=== PATIENT | female | born 1975 | race Caucasian/White ===

== ENCOUNTER 2022-04-21 10:04 | Day surgery (SDC) | payer OTHER ==
[2022-04-16 13:37] LABS: Absolute Lymphocytes (CBC) 1.6 K/uL (0.7-4.9); Hematocrit 40.2 % (36.0-45.0); Lymphocytes % 34.5 % (15.3-44.8); MCV 88.4 fL (80-100); MPV 7.5 fL (7.6-11.3); RBC Red Blood Cell Count 4.55 M/uL (3.86-4.86)
[2022-04-16 13:52] LABS: SARS-CoV-2 Antigen Rapid Res Negative (Negative)
[2022-04-16 15:43] LABS: Urine Clarity Clear (Clear); Urine Color Yellow (Yellow)
[2022-04-16 15:44] LABS: Specific Gravity >= 1.030 (1.005-1.030); Urine Bilirubin NEGATIVE (Negative); Urine Glucose NEGATIVE (Negative)
[2022-04-16 15:45] LABS: Urine Blood Negative (Negative); Urine Protein NEGATIVE (Negative); Urine Urobilinogen 0.2 mg/dL (0.2-1.0); Urine pH 5.5 (5.0-7.0)
[2022-04-21] MEDS ORDERED: SCOPOLAMINE HYDROBROMIDE PATCH TD ONE (10:22)
[2022-04-21] MEDS ORDERED: Ringers Lactate 1,000 ML IV ONE ×3 (10:22→15:30)
[2022-04-21] MEDS ORDERED: MIDAZOLAM HCL 2 MG/2 ML INJ ONE (10:44)
[2022-04-21] MEDS ORDERED: VASOPRESSIN 20 UNIT/ML VIAL ONE (10:44)
[2022-04-21] MEDS ORDERED: LIDOCAINE 2% MPF 5 ML VIAL ONE (10:44)
[2022-04-21] MEDS ORDERED: NS 0.9% VIAL 20 ML ONE (10:44)
[2022-04-21] MEDS ORDERED: NA CHLORIDE 0.9% 100 ML ONE (10:44)
[2022-04-21] MEDS ORDERED: KETAMINE HCL 500 MG/5 ML VIAL ONE (10:44)
[2022-04-21] MEDS ORDERED: ONDANSETRON 4 MG/2 ML VIAL ONE ×2 (10:44→16:43)
[2022-04-21] MEDS ORDERED: ROCURONIUM 50 MG/5 ML VIAL IV ONE (10:44)
[2022-04-21] MEDS ORDERED: propofoL 200 MG/20 ML VIAL IV ONE (10:44)
[2022-04-21] MEDS ORDERED: CEFAZOLIN SODIUM 1 GM/VIAL ONE (10:44)
[2022-04-21] MEDS ORDERED: FENTANYL CITR 250 MCG/5 ML ONE (10:44)
[2022-04-21] MEDS ORDERED: dexAMETHasone 10 MG/ML VIAL ONE (10:44)
[2022-04-21] MEDS ORDERED: CELECOXIB 100 MG CAPSULE ONE (11:16)
[2022-04-21] MEDS ORDERED: ACETAMINOPHEN 500 MG TAB ONE (11:16)
[2022-04-21] MEDS: CEFAZOLIN 2 GM IN 0.9% NACL 2 GM/100 ML BAG ONE ×2 (11:45→11:54)
[2022-04-21] MEDS: BUPIVACAINE 0.25% PF 30 ML VIAL ONE ×3 (11:54→15:00)
[2022-04-21] MEDS ORDERED: GLYCOPYRROLATE 0.2 MG/ML SYR ONE ×2 (12:27→12:28)
[2022-04-21] MEDS ORDERED: VECURONIUM 10 MG/VIAL IV ONE (13:08)
[2022-04-21] MEDS ORDERED: NS 0.9% VIAL 10 ML ONE (13:08)
[2022-04-21] MEDS ORDERED: KETOROLAC 30 MG/ML INJ ONE (15:01)
[2022-04-21] MEDS ORDERED: MORPHINE 10 MG/ML VIAL ONE (15:08)
[2022-04-21] MEDS ORDERED: FENTANYL CITR 100 MCG/2 ML ONE (15:12)
[2022-04-21] MEDS ORDERED: IBUPROFEN 200 MG TAB PO PRN (15:35)
[2022-04-21] MEDS ORDERED: HYDROCODONE/APAP 5/325 MG TAB PO PRN (15:35)
[2022-04-21] MEDS ORDERED: MEPERIDINE HCL 25 MG/ML SYR IM PRN (15:35)
[2022-04-21] MEDS ORDERED: PROMETHAZINE INJ 25 MG/ML AMP IV PRN (15:35)
--- NOTE | 2022-04-21 15:42 | P.BOP ---
Preoperative diagnosis: menorrhagia, uterovaginal prolapse stge 2, PHIL Postoperative diagnosis: same and endometriosis Primary procedure: TLH BS, Endo excision, USLScolpopexy,urethral bulking, cysto Secondary procedure: Grimes's culdoplasty Appointment Manager: Tami Garay Estimated blood loss: min Specimen: uterus tubes, endometriosis Findings: endo in bilat lateral hernandez, stage 2 ant wall+uterine prolapse, patent UOs Anesthesia: General Complications: None Implants: Bulkamid Fluids & blood products: UO-300, LR 2300 Transferred to: Recovery Room Condition: Good
[2022-04-21] MEDS: HYDROMORPHONE HCL 1 MG/ML INJ ONE ×2 (16:14→16:19)
[2022-04-21] MEDS ORDERED: HYDROCODONE/APAP 5/325 MG TAB ONE (18:46)
[2022-04-21 19:36] VITALS: TEMP 98.1
[2022-04-21 19:39] VITALS: BP 122/81; O2SAT 98
--- NOTE | 2022-04-22 06:06 | OP ---
Date of Procedure: 04/21/2022 Surgeon: Natali Elliott MD Sock Knitting Machine Operator: Tami Hidalgo. Preoperative Diagnoses: Menorrhagia, uterovaginal prolapse, stress urinary incontinence, and rectoce le. Postoperative Diagnoses: Menorrhagia, uterovaginal prolapse, stress urinary incontinence, and rectoc moriah and endometriosis. Procedures Performed: 1.Total laparoscopic hysterectomy and bilateral salpingectomy. 2.Endometriosis excision. 3.Uterosacral ligament suspension, colpopexy bilateral, and modified Grimes's culdoplasty, urethral bulking with Bulkamid, and cystoscopy. Estimated Blood Loss: Minimal. Specimens: Uterus, tubes, endometriosis. Findings: Endometriosis and bilateral lateral wall stage II anterior wall prolapse with uterine prol apse at the level 1 support as well. Patent ureteric orifices. After the colpopexy was performed, n o evidence of any obstruction. Ovaries normal and retained in place. Anesthesia: General endotracheal. Complications: None. Implants: Bulkamid. Urine Output: 300. Lr: 2300. Disposition: Transferred to the recovery room in stable condition. Indications: The patient is a 47-year-old female, who presented with heavy menstrual bleeding, evalu ated with ultrasound and endometrial sampling. No evidence of any atypia or malignancy. Complains o f vaginal bulge symptoms, prolapse noted. Also complaining of stress urinary incontinence. She was fully evaluated for this. Discussed about all different options for treatment of all 3 problems. Ralph contreras has a family history of malignant neoplasm of the ovary, also done with childbearing, so we discuss ed about all the options including bilateral salpingectomy for risk reduction of ovarian cancer, uter ine hysterectomy for treatment of bleeding. Alternatives were bilateral salpingectomy with ablation and uterosacral suspension or sacrospinous suspension, the posterior repair and sling. Alternative o f the uterosacral suspension laparoscopically at the time of hysterectomy was discussed and she conse nted for this. Urethral bulking was discussed. The patient did not want her rectocele repaired, so she was consented and brought to the OR. We consented in the preoperative area and taken back to the OR. After 3 g of Ancef was given, SCDs were placed. The patient was intubated and general anesthesia was given. She was then placed in dorsal lithotomy position in Patricio stirrups. Abdomen, vulva, vagina, and perineum were prepped and draped in a sterile fashion. Time-out was done. SCDs were started. Figueroa was placed to drain the bladder and attached for retrograde filling. Speculum was placed to ex pose the cervix and VCare introduced with a large cuff without any problems and fixed in place. This area was then draped. A 1 cm infraumbilical incision was made with a scalpel. Fascia was incised and tagged with 0 Vicryl sutures. Then, Chava placed after adequate insufflation. Site of entry checked and was unremarkabl e. Two 5 ports in the left and right lower quadrant, a 10 port in the suprapubic area were placed. The bowel was retracted using 3-0 Monocryl suture on the epiploicae through the left upper quadrant r etraction. Endometriosis was seen in bilateral lateral hernandez as well as uterosacral and posterior wall of the ut erus and the peritoneum going down to the cul-de-sac. All the endometriosis was excised carefully di ssecting away from the ureter as well as the vessels were stripped. Some included with specimen and some separately handed out for permanent pathology. The mesosalpinx was taken down, tube was divided and removed first on the left side, then on the righ t side. The utero-ovarian ligament and round ligament were taken down. The anterior broad ligament was opened up to raise the bladder flap. The bladder was dissected inferiorly enough to have at leas t 2.5 to 3 cm of the anterior vaginal wall exposed beyond the cup. Then, left side similar dissectio n was performed. Utero-ovarian ligament was taken down, round ligament, broad ligament, and vessels were skeletonized. Vessels were cauterized with the help of bipolar and cut with the vessel sealer o n both sides, then cardinal ligaments were taken down to help with the same thing. Circumferential c olpotomy with a monopolar hook blade and the specimen detached and removed through the vagina. The 2 areas of bleeding were cauterized with the help of bipolar. Two angle sutures with 0 Vicryl we re placed and then 2-0 V-Loc was used to close the vaginal cuff in 2 layers. A vaginal Breisky retractor was placed. Uterosacral ligaments were identified and 3-0 Monocryl sutur e was placed first on the right side. Then, a 2-0 PDS suture was taken making sure the ureter was id entified and away. Tissue spacer of the uterosacral not encircling it, but just through part of the ligament and pulling it up and attaching it to the posterior vaginal wall fascia and the anterior vag inal wall fascia. Then, a Sherrill-Reynold suture was placed on the ligament proximal or cephalad to the PDS suture farther away from the ureter. Another S shaped suture was passed through the ligament and th en through the posterior cul-de-sac, epithelium, posterior vaginal wall, and anterior vaginal wall on the right side medial to the 2-0 PDS suture. These 2 were held separately and then similar sutures were placed on the opposite side as well without any problems. All the sutures were tightened and he ld up and then cystoscopy was performed to see the ureteric orifices and checked for flow. There was brisk flow from both orifices. Figueroa was replaced and then went back to tying the sutures down. On ce they were done, there was excellent support of the anterior vaginal wall and the apex and the cul- de-sac posteriorly was obliterated. Thorough irrigation and suction were performed. Excellent hemos tasis was present. All the trocars were removed. Bupivacaine was injected at the entry and exit. F ascia at the umbilicus was closed with tag sutures tied to each other and simple 0 Vicryl suture at t he fascial incision suprapubic area. All skin incisions were closed with the help of 4-0 chromic. The bowel was released before the case was completed. We went inferiorly. Cystoscopy was performed again, there were excellent jets of urine from both ure teric orifices. No evidence of any trauma or foreign body in the bladder and pediatric cystoscope wa s taken. The bladder was drained, and on moderate flow, the Bulkamid sheath was attached to the pedi atric cystoscope, entered into the urethra. The needle was placed through the sheath. Once the cruz th was placed, the tip of the sheath was placed at the internal os. The needle was extended 2 cm int o the bladder. The entire system was pulled back to mid urethra and the injection was started at 5 o 'clock position and at 2 o'clock, at 11 o'clock, and 7 o'clock, 10 mL was injected, then went back in to re-inject at 1 o'clock position and then at 4 o'clock position to make nice circumferential bulki ng in the mid urethral area. At other points, a total of 1.5 mL was injected. The scope was removed . A red rubber catheter 12-Belgian was used to drain the bladder. She was recovered from anesthesia. EBL was minimal. Instrument, needle, and sponge counts were correct x3 at the end of the case. Ralph contreras will have a voiding trial and be discharged. Her was briefed on her procedure. Pain medic ation was sent. BELKYS/PHIL Voice ID: [id number] Report ID: [id number]
[2022-04-22] MEDS ORDERED: AMPHETAMINE PO SCH (09:00)
[2022-04-22] MEDS ORDERED: PSYLLIUM HUSK 660 GM PO SCH (09:00)
[2022-04-22] MEDS ORDERED: DEXTROAMPHETAMINE PO SCH (09:00)
[2022-04-22] MEDS ORDERED: DOCUSATE NA 100 MG CAP PO SCH (09:00)
== END 2022-04-21 19:39 | disposition home or self-care (01) ==
LOC: OR 10:04
PROVIDERS: ATTEND Obstetrics & Gynecology
PROC: 0UT74ZZ Resection of Bilateral Fallopian Tubes, Percutaneous Endoscopic Approach (ICD-10-PCS; 2022-04-21)
PROC: 0UB94ZZ Excision of Uterus, Percutaneous Endoscopic Approach (ICD-10-PCS; 2022-04-21)
PROC: 0WBF4ZZ Excision of Abdominal Wall, Percutaneous Endoscopic Approach (ICD-10-PCS; 2022-04-21)
PROC: 0DBW4ZZ Excision of Peritoneum, Percutaneous Endoscopic Approach (ICD-10-PCS; 2022-04-21)
PROC: 0TVD8ZZ Restriction of Urethra, Via Natural or Artificial Opening Endoscopic (ICD-10-PCS; 2022-04-21)
PROC: 0USG4ZZ Reposition Vagina, Percutaneous Endoscopic Approach (ICD-10-PCS; 2022-04-21)
PROC: 0UT94ZZ Resection of Uterus, Percutaneous Endoscopic Approach (ICD-10-PCS; principal; 2022-04-21 11:30)
DX: N81.2 Incomplete uterovaginal prolapse (principal); N92.0 Excessive and frequent menstruation with regular cycle; N39.3 Stress incontinence (female) (male); Z30.09 Encounter for other general counseling and advice on contraception; N81.6 Rectocele; Z80.41 Family history of malignant neoplasm of ovary; K59.00 Constipation, unspecified; Z20.822 Contact with and (suspected) exposure to COVID-19
CPT/HCPCS: 58571; 58662; 51715; 57425; 85025; 36415 ×2; 86900; 86850; 84703; 86901; 88305; 88307; 81003; 87811; J2704; J2250; J3010 ×2; J1100; J1170; J0690; J7120 ×3; J2405 ×2; L8606